=== PATIENT | female | born 1985 | race Two or more races ===

== ENCOUNTER 2016-08-20 11:32 | Emergency (ER) | payer MEDICAID ==
[~2016-08-20] VITALS: Ht 157.5 cm; Wt 58.5 kg
[2016-08-20 11:57] VITALS: BP 114/64
[2016-08-20] MEDS ORDERED: NEOMYCIN-BACITRACIN-POLYM UNITDOSE PKG TOP OINT TOP ONE (13:45)
[2016-08-20] MEDS ORDERED: LIDOCAINE 1% HCL (LOCAL ANESTH.) INJ 20ML MDV ID ONE (13:45)
== END 2016-08-20 14:31 | disposition home or self-care (01) ==
LOC: ER 11:46
DX: S61.411A Laceration without foreign body of right hand, initial encounter (principal); X58.XXXA Exposure to other specified factors, initial encounter; Y93.89 Activity, other specified; Y92.89 Other specified places as the place of occurrence of the external cause; Y99.8 Other external cause status
CPT/HCPCS: 12002; 73130; 99284; J2001